=== PATIENT | female | born 1955 ===

== ENCOUNTER 2018-01-25 09:12 | Inpatient (IN) | payer OTHER ==
--- NOTE | 2018-01-25 09:14 | EDPHY ---
H & P Time Seen by Provider: 01/25/18 09:13 HPI/ROS: CHIEF COMPLAINT: Left hip pain post mechanical fall HISTORY OF PRESENT ILLNESS: 62-year-old female arrives via ambulance, not a trauma activation, complaining of acute left hip pain after she tripped on a crack outside of her house, fell onto her left hip this morning. There are no prolonged periods of mobility on the ground. Unable to bear weight. No head injury. No back pain or injury. No peripheral paresthesia, weakness, numbness. No other lower extremity injury beyond the left hip pain. Intact skin. No alcohol or drug use Last oral intake 7:30 a.m. consisting of dariana PRIMARY CARE PROVIDER:Kanchan REVIEW OF SYSTEMS: 10 systems reviewed and negative with the exception of the elements mentioned in the history of present illness PAST MEDICAL/SURGICAL HISTORY: no anticoagulant use, no relevant medical/ surgical history SOCIAL HISTORY: denies alcohol use at time of incident PHYSICAL EXAM 1) GENERAL: Well-developed, well-nourished, alert and oriented. Appears uncomfortable when she is moved from the ambulance pram to the bed . Answering questions appropriately. 2) HEAD: Normocephalic, atraumatic 3) HEENT: Pupils equal, round, reactive to light bilaterally. Negative Horners. Nasopharynx, oropharynx, clear. No deformity or angulation of nose. No septal hematoma. No rhinorrhea. No oral trauma. Ears bilaterally with normal tympanic membranes. No hemotympanum. No fluid or blood in the external auditory canal. No raccoon eyes. No Millard sign. Teeth are normally aligned with no gross malocclusion, TMJ bilaterally nontender, facial bones nontender including the zygomatic arch, maxilla mandible. 4) NECK: No cervical collar is on. Posterior cervical spine is nontender, no stepoff, no effusion. Full range of motion which does not elicit any midline cervical spine pain, no posterior midline tenderness, no step-off. 5) LUNGS: Clear to auscultation bilaterally, no wheezes, no rhonchi, no retractions. No obvious signs of trauma. No chest wall pain. No flaring, no grunting. Moving symmetrically. No crepitus. 6) HEART: Regular rate and rhythm, 7) ABDOMEN: No guarding, no rebound, no focal tenderness, no peritoneal signs, no signs of trauma, no ecchymosis 8) MUSCULOSKELETAL: Left lower extremity: Unable to assess like length discrepancy is patient is keeping like flexed and unwilling or unable to extend secondary to pain at the greater trochanteric region. No visible trauma such as ecchymosis or abrasion. Intact skin. Soft compartments throughout. DP PT pulses present and brisk. Brisk capillary refill distally. Otherwise, Moving all extremities, no focal areas of tenderness, no obvious trauma. 9) BACK: No midline vertebral tenderness, no fluctuance, no step-off, no obvious trauma, no visual or palpable abnormality. 10) SKIN: No laceration. No abrasion DIFFERENTIAL DIAGNOSIS: In no particular order including but not limited to fracture, sprain, strain, dislocation, compartment syndrome Constitutional: Initial Vital Signs Temperature (C) 36.7 C 01/25/18 09:12 Heart Rate 88 01/25/18 09:12 Respiratory Rate 16 01/25/18 09:12 Blood Pressure 122/94 H 01/25/18 09:12 O2 Sat (%) 94 01/25/18 09:12 O2 Delivery Mode Room Air Allergies/Adverse Reactions: No Known Allergies Allergy (Verified 01/25/18 11:05) Home Medications: Medication Instructions Recorded Estradiol [Estradiol 1 MG (*)] 1 mg PO HS 01/25/18 Herbals/Supplements -Info Only 1 ea PO DAILY 01/25/18 Multivitamins [Multivitamin (*)] 1 each PO DAILY 01/25/18 Progesterone, Micronized 100 mg PO HS 01/25/18 [Progesterone] Medical Decision Making - Diagnostics Imaging Results: Imaging Impressions Chest X-Ray 01/25/18 09:26 Impression: No acute pulmonary disease. Hip X-Ray 01/25/18 09:26 Impression: 1. Fracture left femoral neck extending to the lesser trochanter. Mild displacement. Images reviewed by myself ED Course/Re-evaluation: 9:25 a.m.: I have examined the patient. Suspect more than likely left hip fracture. She will remain NPO, last oral intake at 7:30 a.m. Today. Will obtain x-rays. I saw this patient independently based on established practice protocols. Care of patient under supervision of secondary supervising physician Dr Erika Wheatley with whom I discussed case. 10:06 a.m.: I reviewed with the patient her her x-ray showing left femoral neck fracture. She consented to having knee electronically transmitted non identifying x-rays to orthopedic surgeon television news reporter Dr. Lopez Strong 10:45 a.m.: Consultation with hospitalist, Shikha, admit to Dr. Hubert Gracia. Awaiting callback from Dr. Strong 10:53 a.m.: Consultation with Dr. Lopez Strong will consult Orthopedics, possible surgery tomorrow 11:15 a.m.: Phone call from Dr. Strong requests CT of the left hip - Data Points Laboratory Results: Laboratory Results 01/25/18 10:00 01/25/18 09:30 01/25/18 01/25/18 01/25/18 10:00 10:00 09:30 WBC 9.15 10^3/uL 10^3/uL (3.80-9.50) RBC 4.76 10^6/uL 10^6/uL (4.18-5.33) Hgb 14.2 g/dL g/dL (12.6-16.3) Hct 42.3 % % (38.0-47.0) MCV 88.9 fL fL (81.5-99.8) MCH 29.8 pg pg (27.9-34.1) MCHC 33.6 g/dL g/dL (32.4-36.7) RDW 13.5 % % (11.5-15.2) Plt Count 280 10^3/uL 10^3/uL (150-400) MPV 9.4 fL fL (8.7-11.7) Neut % (Auto) 74.0 % % (39.3-74.2) Lymph % (Auto) 18.0 % % (15.0-45.0) Webster % (Auto) 5.5 % % (4.5-13.0) Eos % (Auto) 1.5 % % (0.6-7.6) Baso % (Auto) 0.5 % % (0.3-1.7) Nucleat RBC Rel Count 0.0 % % (0.0-0.2) Absolute Neuts (auto) 6.76 10^3/uL H 10^3/uL (1.70-6.50) Absolute Lymphs (auto) 1.65 10^3/uL 10^3/uL (1.00-3.00) Absolute Monos (auto) 0.50 10^3/uL 10^3/uL (0.30-0.80) Absolute Eos (auto) 0.14 10^3/uL 10^3/uL (0.03-0.40) Absolute Basos (auto) 0.05 10^3/uL 10^3/uL (0.02-0.10) Absolute Nucleated RBC 0.00 10^3/uL 10^3/uL (0-0.01) Immature Gran % 0.5 % % (0.0-1.1) Immature Gran # 0.05 10^3/uL 10^3/uL (0.00-0.10) PT 12.4 SEC SEC (12.0-15.0) INR 0.90 (0.83-1.16) APTT 23.2 SEC SEC (23.0-38.0) Sodium 139 mEq/L mEq/L (135-145) Potassium 3.9 mEq/L mEq/L (3.3-5.0) Chloride 105 mEq/L mEq/L (97-110) Carbon Dioxide 24 mEq/l mEq/l (22-31) Anion Gap 10 mEq/L mEq/L (6-14) BUN 17 mg/dL mg/dL (7-23) Creatinine 0.8 mg/dL mg/dL (0.6-1.0) Estimated GFR > 60 Glucose 107 mg/dL H mg/dL (70-100) Calcium 9.5 mg/dL mg/dL (8.5-10.4) 01/25/18 01/25/18 09:30 09:30 WBC REJ RBC REJ Hgb REJ Hct REJ MCV REJ MCH REJ MCHC REJ RDW REJ Plt Count REJ MPV REJ Neut % (Auto) REJ Lymph % (Auto) REJ Webster % (Auto) REJ Eos % (Auto) REJ Baso % (Auto) REJ Nucleat RBC Rel Count REJ Absolute Neuts (auto) REJ Absolute Lymphs (auto) REJ Absolute Monos (auto) REJ Absolute Eos (auto) REJ Absolute Basos (auto) REJ Absolute Nucleated RBC REJ Immature Gran % REJ Immature Gran # REJ PT REJ INR REJ APTT REJ Sodium Potassium Chloride Carbon Dioxide Anion Gap BUN Creatinine Estimated GFR Glucose Calcium Medications Given: Discontinued Medications Hydromorphone HCl (Dilaudid) 1 mg IVP EDNOW ONE Stop: 01/25/18 09:28 Last Admin: 01/25/18 09:35 Dose: 1 mg Ondansetron HCl (Zofran) 4 mg IVP EDNOW ONE Stop: 01/25/18 09:28 Last Admin: 01/25/18 09:36 Dose: 4 mg Departure - Departure Disposition: [facility] Inpatient Acute Clinical Impression: Left displaced femoral neck fracture Condition: Good
[2018-01-25] MEDS ORDERED: HYDROmorphONE/DILAUDID 1 MG/ML INJ IVP ONE ×2 (09:27→11:18)
[2018-01-25] MEDS ORDERED: ONDANSETRON 4 MG/2 ML VIAL IVP ONE (09:27)
[2018-01-25] MEDS ORDERED: HYDROmorphONE/DILAUDID 2 MG/ML INJ ONE (09:31)
[2018-01-25 10:33] LABS: INR 0.9 (0.83-1.16); PROTIME(PATIENT) 12.4 SEC (12.0-15.0)
--- NOTE | 2018-01-25 11:18 | CPEKG ---
Test Reason : OPEN Blood Pressure : / mmHG Vent. Rate : 079 BPM Atrial Rate : 080 BPM P-R Int : 153 ms QRS Dur : 096 ms QT Int : 381 ms P-R-T Axes : 079 070 062 degrees QTc Int : 437 ms Sinus rhythm Borderline T abnormalities, anterior leads Confirmed by Erika Wheatley ([id number]) on 01/25/2018 11:18:23 AM Referred By: Confirmed By:Erika Wheatley
[2018-01-25] MEDS ORDERED: ACETAMINOPHEN 325 MG TAB PO ONE (12:34)
[2018-01-25] MEDS ORDERED: FAMOTIDINE 20 MG TAB PO ONE (12:34)
[2018-01-25] MEDS ORDERED: POVIDONE-IODINE 20 ML in SODIUM CL IRRIG SOLUTION 500 ML IRR ONE (12:34)
[2018-01-25] MEDS ORDERED: TRANEXAMIC ACID 1,000 MG in NS 100 ML IV ONE (12:34)
[2018-01-25] MEDS ORDERED: DEXAMETHASONE 4 MG/ML VIAL IVP ONE (12:34)
[2018-01-25] MEDS ORDERED: ceFAZolin 2 GM/DEXTROSE 100 ML IV ONE (12:34)
[2018-01-25] MEDS ORDERED: ROPIVACAINE 0.2% 80 MG, EPINEPHrine 0.2 MG, KETOROLAC TROMETHAMINE 30 MG in SYRINGE 0 ML IU ONE (12:34)
[2018-01-25] MEDS ORDERED: ACETAMINOPHEN 325 MG TAB PO PRN (13:02)
[2018-01-25] MEDS ORDERED: ONDANSETRON DISINTEGRATING 4 MG TAB PO PRN (13:02)
[2018-01-25] MEDS ORDERED: ONDANSETRON 4 MG/2 ML VIAL IVP PRN (13:02)
[2018-01-25] MEDS ORDERED: HYDROmorphONE/DILAUDID 2 MG/ML INJ IVP PRN (13:02)
[2018-01-25] MEDS ORDERED: POLYETHYLENE GLYCOL 3350 17 GM PKT PO PRN (13:07)
[2018-01-25] MEDS ORDERED: MAGNESIUM HYDROXIDE 30 ML UDCUP PO PRN (13:07)
[2018-01-25] MEDS ORDERED: LACTULOSE 20 GM/30 ML UDCUP PO PRN (13:07)
[2018-01-25] MEDS ORDERED: BISACODYL 10 MG SUPP PR PRN (13:07)
--- NOTE | 2018-01-25 13:51 | GHP ---
DATE OF ADMISSION: 01/25/2018 CHIEF COMPLAINT: Left hip pain. HISTORY OF PRESENT ILLNESS: The patient is a delightful 62-year-old female without any significant past medical history. Earlier today, she was walking by her house between the cement and mulch area. There was a hole in which her right foot landed and she fell on her left hip. She describes losing her balance and falling completely on her left side. She did not sustain any other injuries. She did not have any chest pain, shortness of breath, or any type of presyncopal symptoms, it was simply loss of balance. During my interview, she is having no pain if she does not move. She is very concerned about moving. PAST MEDICAL HISTORY: Elevated cholesterol. PAST SURGICAL HISTORY: None. SOCIAL HISTORY: She does not smoke. She does not drink alcohol. She has been x41 years. She has 2 sons. She is retired. 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 She grew up in [place]. She is overall very active woman. She swims twice a week. She also volunteers at the [employer] and walks on a regular basis with her dogs. FAMILY HISTORY: Her mother from complications of ovarian cancer at age 82. Father from complications of cardiac issues at age 93. ALLERGIES: No known allergies. MEDICATIONS: Multivitamin 1 tablet daily, herbal supplements 1 tablet daily, progesterone 100 mg p.o. q.h.s. , estradiol 1 mg p.o. q.h.s. REVIEW OF SYSTEMS: A 10-point review of system was performed, was negative other than pertinent positives in HPI and past medical history. PHYSICAL EXAM: GENERAL: The patient is a 62-year-old female who appears to be in excellent health. VITAL SIGNS: Blood pressure is 131/72, heart rate is 77, respiratory rate is 16, O2 sats on room air 95%, temperature is 36.7 Celsius. EYES: pupils are equal reactive. EOMs are intact. She is wearing glasses. ENT: Normal ears. Hearing intact. Normal lips, teeth. Oral airways moist. NECK: Trachea is midline. No masses. CARDIOVASCULAR: Regular rate and rhythm. No murmurs, rubs, or gallops noted. CHEST/LUNGS: Normal respiratory effort. Clear without wheezing, rales, or rhonchi. ABDOMEN: Soft, nontender. SKIN: No rashes. Warm, dry, and intact. MUSCULOSKELETAL: Her left lower extremity is shortened and externally rotated. PSYCHIATRIC: She is alert and oriented. Normal mood, affect. Normal judgment, insight, and normal memory. LABORATORY/IMAGING DATA: Reviewed. A CBC was performed, which showed a white blood cell count of 9.15, hemoglobin 14.2, hematocrit 42.3, platelet count 280. Coags: Pro time is 12.4, INR of 0.9, PTT 23.2. Chemistry: Sodium is 139, potassium 3.9, chloride of 105, BUN of 17, creatinine 0.8, glucose of 107, calcium 9.5. 1. Chest x-ray was performed, which showed no acute pulmonary disease. Cardiac silhouette is normal in size. 2. Hip x-ray shows fracture of the left femoral neck extending to the lesser trochanter with mild displacement. 3. A CT of the pelvis and left hip shows left femoral neck fracture with mild displacement and without extension to the lesser and greater trochanters. I reviewed the patient's care with David Werner, physician assistant community manager, in the emergency room. I also reviewed her care with Dr. Lopez Strong who plans on taking her to the OR tomorrow. ASSESSMENT/PLAN: 1. Left femoral neck fracture with mild displacement. The plan is for her to go to operating room in the morning. She is extremely functional at baseline. Will get a baseline EKG. 2. Pain due to the hip fracture. Will order p.r.n. pain medications and also place her on a bowel protocol. 3. Mild hyperglycemia. This is likely stress induced. 4. Deep venous thrombosis prophylaxis. This should be initiated after surgery , especially in the setting of hormone replacement therapy. 5. Length of stay. She will likely require greater than a 2-midnight stay for surgery and re-evaluation by Physical Therapy and Occupational Therapy. CODE STATUS: Full. /[id number]/MODL MTDD
[2018-01-25] MEDS: ACETAMINOPHEN 500 MG TAB PO SCH ×2 (14:07→22:08)
--- NOTE | 2018-01-25 15:11 | ASMTCMCOM ---
CM Note CM Note Notes: Pt admitted to hospital after a fall. She is normally in good health and active, she lives at home with her . She will go for surgery tomorrow am. PT/OT pending. DC Plan: TBD Date Signed: 01/25/2018 03:10 PM Electronically Signed By:Mandi Eastman RN
--- NOTE | 2018-01-25 15:13 | PDMN ---
Medical Necessity Medical necessity: Pt meets inpt criteria per MD order and [facility] [id number], Hip Fracture, Open Repair RRG, 3 days, [facility] inpt only list. 62 y/o admitted with L femoral neck fracture sustained in fall, plan to go to OR tomorrow AM for surg intervention, pain management. Anticipate>2MN for management of hip fracture.
[2018-01-25] MEDS: oxyCODONE IR 5 MG TAB PO PRN ×3 (15:22→22:09)
[2018-01-25] MEDS: ZOLPIDEM TARTRATE 5 MG TAB PO PRN (22:09)
[2018-01-25] MEDS: SENNOSIDES/DOCUSATE SODIUM TAB PO SCH (22:10)
[2018-01-25] MEDS: NS 1,000 ML IV SCH (22:10)
[2018-01-26] MEDS: ACETAMINOPHEN 500 MG TAB PO SCH ×3 (05:59→21:56)
[2018-01-26] MEDS: oxyCODONE IR 5 MG TAB PO PRN ×2 (06:00→10:19)
[2018-01-26] MEDS: NS 1,000 ML IV SCH (07:03)
[2018-01-26] MEDS: SENNOSIDES/DOCUSATE SODIUM TAB PO SCH ×2 (07:37→21:56)
[2018-01-26] MEDS ORDERED: LR 1,000 ML IV ONE (11:53)
[2018-01-26] MEDS ORDERED: TRANEXAMIC ACID 1,000 MG in NS 100 ML IV ONE (12:00)
[2018-01-26] MEDS ORDERED: DEXAMETHASONE 4 MG/ML VIAL IVP ONE (12:00)
[2018-01-26] MEDS ORDERED: FAMOTIDINE 20 MG TAB PO ONE (12:00)
[2018-01-26] MEDS ORDERED: ceFAZolin 2 GM/DEXTROSE 100 ML IV ONE (12:00)
[2018-01-26] MEDS ORDERED: POVIDONE-IODINE 20 ML in SODIUM CL IRRIG SOLUTION 500 ML IRR ONE (12:00)
[2018-01-26] MEDS ORDERED: ROPIVACAINE 0.2% 80 MG, EPINEPHrine 0.2 MG, KETOROLAC TROMETHAMINE 30 MG in SYRINGE 0 ML IU ONE (12:00)
--- NOTE | 2018-01-26 12:06 | GCON ---
ORTHOPEDIC CONSULTATION. DATE OF CONSULTATION: 01/25/2018 TIME: 12:30 p.m. CHIEF COMPLAINT: Left hip pain. HISTORY OF PRESENT ILLNESS: A 62-year-old female, otherwise healthy, who tripped and fell with her l anding onto her left side due to a hole in the ground. She denies head trauma or loss of consciousne ss. She denies chest pain, shortness of breath, dizziness or loss of balance. She is comfortable du ring her interview and able to recount the entire event. She denies numbness or tingling. PAST MEDICAL HISTORY: Hyperlipidemia. PAST SURGICAL HISTORY: None. SOCIAL HISTORY: Denies nicotine, alcohol, or illicit drug use. She is originally from [facility], but h as been in [place] for multiple decades. She is overall very active. She swims multiple times per w [employer]. ALLERGIES: None. MEDICATIONS: Multivitamin and herbal supplements daily, progesterone 100 mg every night, estradiol 1 mg every night. FAMILY HISTORY: Noncontributory. REVIEW OF SYSTEMS: 10-point review of systems was performed and negative, otherwise as per HPI. PHYSICAL EXAM: GENERAL: The patient is awake, alert, and oriented x3, in no acute distress. She is using nonlabored breathing. VITAL SIGNS: Blood pressure is 131/72, heart rate 77, respiration rate 16, O2 saturation 95% on room air. Temperature 36.7. HEENT: Pupils equal, and reactive. Normocep halic, atraumatic. EXTREMITIES: Left lower extremity is shortened and externally rotated. She has tenderness to palpation around the lateral and anterior hip. There is no significant ecchymosis and minimal swelling. LABORATORY DATA: Unremarkable and as noted per the chart. IMAGING: AP pelvis and x-rays of the left hip demonstrate a displaced midcervical femoral neck fract ure. ASSESSMENT AND PLAN: A 62-year-old female with a displaced left femoral neck fracture. We discussed treatment options including nonoperative, hip preserving fixation procedures, and hip replacement. All the risks, benefits, pros and cons of each were described. The patient has elected to proceed wi th a left anterior approach total hip arthroplasty. All the risks and benefits were discussed includ ing the inherent risks of anesthesia and surgery including bleeding, infection, damage to surrounding structures, specifically the lateral femoral cutaneous nerves, sciatic and femoral nerves, specifica lly with hip replacement, the risks of fracture, dislocation, leg length discrepancy, heterotopic os sification, implant longevity, metal allergies and risk of DVT. The patient voiced understanding to all these risks and benefits and wishes to proceed. She will be placed on Lovenox postoperatively d ue to her use of hormone replacement therapy. This will be held for the next 4 weeks while she is in the perioperative period. She understands and agrees with this treatment plan. All questions were answered. /[id number]/MODL
[2018-01-26] MEDS ORDERED: BUPIVACAINE/EPI 0.5% 30 ML SDV ONE (12:14)
--- NOTE | 2018-01-26 12:19 | CPEKG ---
Test Reason : OPEN Blood Pressure : / mmHG Vent. Rate : 080 BPM Atrial Rate : 080 BPM P-R Int : 151 ms QRS Dur : 084 ms QT Int : 502 ms P-R-T Axes : 075 064 000 degrees QTc Int : 580 ms Sinus rhythm Prolonged QT interval Prolongation of the QT is new in comparison to the prior Confirmed by Bo Davidson [id number]) on 01/26/2018 12:19:02 PM Referred By: Confirmed By:Bo Davidson
--- NOTE | 2018-01-26 12:35 | HOSPPROG ---
Hospitalist Progress Note Assessment/Plan: 1. L Femoral Neck Fracture - Ortho consulted, plan for OR today - Pain medications prn - PT/OT ordered 2. Pain 2/2 to Hip Fracture - Pain medications ordered as PRN - Bowel protocol ordered 3. Mild Hyperglycemia - Likely stress induced - Continue to monitor Ppx: - Start DVT ppx s/p procedure Dispo: Pending clinical course, PT/OT recommendations Subjective: Patient reports pain in LLE Objective: Vital Signs Temp Pulse Resp BP Pulse Ox 37.0 C 83 18 122/66 H 92 01/26/18 11:37 01/26/18 11:37 01/26/18 11:37 01/26/18 11:37 01/26/18 11:37 01/25/18 01/26/18 01/27/18 05:59 05:59 05:59 Intake Total 550 960 Output Total 1100 850 Balance -550 110 PT 12.4 SEC (12.0-15.0) 01/25/18 10:00 INR 0.90 (0.83-1.16) 01/25/18 10:00 - Physical Exam Constitutional: no apparent distress Eyes: PERRL Ears, Nose, Mouth, Throat: moist mucous membranes Cardiovascular: regular rate and rhythym Respiratory: clear to auscultation Gastrointestinal: soft, non-tender abdomen Genitourinary: no bladder tenderness Skin: warm Musculoskeletal: pain with ROM Neurologic: AAOx3 Psychiatric: interacting appropriately ICD10 Worksheet Patient Problems: Problems Problem Status Onset Left displaced femoral neck fracture Acute
--- NOTE | 2018-01-26 13:22 | PDANEPAE ---
ANE Past Medical History - Pulmonary History Hx Oxygen in Use at Home: No Hx Sleep Apnea: Yes Sleep Apnea Screening Result - Last Documented: Positive - Endocrine History Hx Diabetes: No ANE Review of Systems Review of Systems: ANE Patient History - Allergies Allergies/Adverse Reactions: No Known Allergies Allergy (Verified 01/25/18 11:05) - Home Medications Home medications: home medication list seen and reviewed Home Medications: Estradiol [Estradiol 1 MG (*)] 1 mg PO HS 01/25/18 [Last Taken 01/24/18] Herbals/Supplements -Info Only 1 ea PO DAILY 01/25/18 [Last Taken Unknown] Multivitamins [Multivitamin (*)] 1 each PO DAILY 01/25/18 [Last Taken Unknown] Progesterone, Micronized [Progesterone] 100 mg PO HS 01/25/18 [Last Taken ] - NPO status NPO Since - Liquids (Date): 01/26/18 NPO Since - Liquids (Time): 00:00 NPO Since - Solids (Date): 01/26/18 NPO Since - Solids (Time): 00:00 - Smoking Hx Smoking Status: Never smoked ANE Labs/Vital Signs - Labs Result Diagrams: 01/25/18 10:00 01/25/18 09:30 - Vital Signs Blood Pressure: 122/66 Heart Rate: 83 Respiratory Rate: 18 O2 Sat (%): 92 Height: 162.56 cm Weight: 68.039 kg
[2018-01-26] MEDS ORDERED: MIDAZOLAM 2 MG/2 ML VIAL IVP ONE (13:26)
[2018-01-26] MEDS ORDERED: MIDAZOLAM 2 MG/2 ML VIAL ONE (13:30)
[2018-01-26] MEDS ORDERED: PROPOFOL 200 MG/20 ML VIAL ONE (13:42)
[2018-01-26] MEDS ORDERED: fentaNYL 100 MCG/2 ML INJ ONE ×2 (13:42→16:21)
[2018-01-26] MEDS ORDERED: ROCURONIUM 100 MG/10 ML VIAL ONE (14:04)
[2018-01-26] MEDS ORDERED: LIDOCAINE 2% 100 MG/5 ML SYR ONE (14:04)
[2018-01-26] MEDS ORDERED: ONDANSETRON 4 MG/2 ML VIAL IVP PRN (15:32)
[2018-01-26] MEDS ORDERED: NALOXONE HCL 0.4 MG/ML INJ IVP PRN (15:32)
[2018-01-26] MEDS ORDERED: HYDROmorphONE/DILAUDID 2 MG/ML INJ IVP PRN (15:32)
--- NOTE | 2018-01-26 16:14 | POSTANESTH ---
Post Anesthetic Evaluation Cardiovascular Status: Similar to Pre-Op Cond Respiratory Status: Similar to Pre-op Cond. Level of Consciousness/Mental Status: Alert and Oriented Pain Control: Adequate, Prn Tx Ordered Nausea/Vomiting Control: Adequate, Prn Tx Ordered Complications Possibly Related to Anesthesia: None Noted
--- NOTE | 2018-01-26 16:18 | POSTOPPROG ---
Post Op Note Date of Operation: 01/26/18 Surgeon: Lopez Strong Military Cook: MAYRA Guevara Anesthesiologist: MD Zoe Anesthesia: GET(General Endotracheal) Pre-op Diagnosis: left femoral neck fracture Post-op Diagnosis: same Procedure: Left anterior GRACE Inf/Abcess present in the surg proc area at time of surgery?: No EBL: 100-500 (300) Drains: Hemovac
[2018-01-26] MEDS ORDERED: METOCLOPRAMIDE 10 MG/2 ML VIAL IVP PRN (16:19)
[2018-01-26] MEDS ORDERED: DIPHENOXYLATE/ATROPINE LOMOTIL 1 TAB PO PRN (16:19)
[2018-01-26] MEDS ORDERED: CYCLOBENZAPRINE 10 MG TAB PO PRN (16:19)
[2018-01-26] MEDS ORDERED: TEMAZEPAM 15 MG CAP PO PRN (16:19)
[2018-01-26] MEDS ORDERED: diphenhydrAMINE 25 MG CAP PO PRN (16:19)
[2018-01-26] MEDS ORDERED: PROMETHAZINE HCL 25 MG/ML INJ IVP PRN (16:19)
[2018-01-26] MEDS: fentaNYL 100 MCG/2 ML INJ IVP PRN ×2 (16:23→16:42)
[2018-01-26] MEDS ORDERED: LR 1,000 ML IV SCH (16:30)
--- NOTE | 2018-01-26 19:24 | GOP ---
DATE OF OPERATION: 01/25/2018 SURGEON: Lopez Strong MD INDUSTRIAL ENGINEERING MANAGER: HARRIET Rogel Nursing Coordinator was required for the procedure due to the complexity of the case and the patient's conditio n for positioning, prepping, draping and retraction and closure. ANESTHESIA: General. PREOPERATIVE DIAGNOSIS: Left femoral neck fracture. POSTOPERATIVE DIAGNOSIS: Displaced, externally rotated and shortened femoral neck fracture with infe rior comminution. PROCEDURE PERFORMED: Left anterior approach total hip arthroplasty with fluoroscopic supervision, gr eater than 1 hour. FINDINGS: SPECIMENS: None. ESTIMATED BLOOD LOSS: 300 cc. INDICATIONS: Patient had a mechanical fall into a hole and fell onto her left side sustaining the fe moral neck fracture. The patient elected to proceed with anterior approach hip replacement after ext ensive discussion of the possible approaches, as well as the risks, benefits, pros, cons, expected re covery and prognosis. The patient verbalized understanding of the risks and benefits of the procedur e and signed informed consent prior to the procedure. DESCRIPTION OF PROCEDURE: The patient was seen in the holding area and the operative consent and ext remity were signed. The patient was taken to the operating room after smooth induction of spinal ane sthesia and sedation. The patient was placed in the supine position on the stress fracture table. Th e hip was prepped and draped in the usual sterile fashion. The operative site was confirmed by signa ture. Time-out performed. Allergies reviewed, and antibiotics and TXA were administered. The desired incision for the anterior approach of the hip was infiltrated with 0.25% Marcaine with ep inephrine. Incision was made with a 10 blade, carried through subcutaneous fat to identify the TFL f ascia. This was incised in line with the incision, and the TFL was retracted laterally and the later al femoral circumflex vessels were coagulated with the Aquamantys, and the deep TFL fascia was incise d. Vastus lateralis was clearly exposed, pericapsular fat was excised and a T-shaped capsulotomy was performed and the capsule was preserved for later closure. Immediate identification of the comminut ed femoral neck fracture was observed. The femoral neck fracture was freshened with an oscillating s aw. The excess femoral neck was removed and the femoral head was excised with a corkscrew. The acet abulum was exposed in standard fashion, labrum and pulvinar were excised sharply. Reaming was perfor med using fluoroscopic guidance to the desired size. The cup was impacted into place, again with flu oroscopic guidance. Good fixation was achieved. The cup was irrigated, dried, and the liner was imp acted into place achieving good locking within the cup. The femur was then exposed in standard fashi on. The femur was then broached to the desired size, trial neck and head were attached to the hip an d the hip was relocated. Position of all components was confirmed, fluoroscopically. The foot was f cathleen from the table and stability was confirmed at 45 degrees in maximal flexion with 30 degrees of i nternal rotation. The foot was secured back to the table, externally rotated at 90 degrees, extended chcf to the floor and stability again was confirmed. The hip was then dislocated, and the femora l trial components were removed and the stem was impacted into place. The trunnion was cleaned and d ried, and the head was impacted down into the trunnion. The wound was copiously irrigated, including the cup with pulse lavage and the hip was once again relocated. Component placement was confirmed w ith fluoroscopy. The wound was copiously irrigated with sterile solution, diluted Betadine and solut ion was then irrigated in the wound, allowed to soak for 3 minutes before being irrigated out. A regina nt cocktail was injected into the soft tissue, capsule was repaired with #1 Vicryl. The indirect hea d of the rectus femoris was also repaired with #1 Vicryl. Drain was placed exiting distally and late rally from the TFL. The wound was then closed in layers with 0 Quill in the TFL fascia and subcutane ous fat, 3-0 Versalok in dermis. The wound was then dressed with sterile dressing. Patient was safe ly awakened, extubated, and taken to the recovery room in stable condition. All critical portions of procedure were performed by myself, Dr. Strong. This operative note was creat ed by myself, and I was immediately available for emergency cross-coverage at all times. DRAINS: Hemovac x1. COMPLICATIONS: None. IMPLANTS: Trident II acetabular shell, size 48 with a 0 degree polyethylene liner, Accolade II, size 4 stem, 127 degree offset with a 36 mm +0 head. /[id number]/MODL
[2018-01-26] MEDS: ZOLPIDEM TARTRATE 5 MG TAB PO PRN (21:56)
[2018-01-26] MEDS: ceFAZolin 2 GM/DEXTROSE 100 ML IV SCH (21:57)
[2018-01-26] MEDS: FAMOTIDINE 20 MG TAB PO SCH (21:57)
[2018-01-27] MEDS: ACETAMINOPHEN 500 MG TAB PO SCH (05:05)
[2018-01-27] MEDS: ceFAZolin 2 GM/DEXTROSE 100 ML IV SCH (05:05)
[2018-01-27 05:10] LABS: PLATELET COUNT 247 10^3/uL (150-400)
--- NOTE | 2018-01-27 06:29 | SOAPPROG ---
SOAP Progress Note Assessment/Plan: Assessment: Postop day 1 status post left anterior approach total hip arthroplasty for femoral neck fracture Plan: Weight bear as tolerated with assistance, PT/OT DVT prophylaxis: SCDs [place] Lovenox x2 weeks 40 mg daily, aspirin 81 mg twice daily for 2 weeks thereafter Hold hormone replacement for 1 month Incentive spirometry 10 times per hour Hematuria resolved, Ron has been removed Disposition: home today 01/27/18 06:26 01/27/18 06:27 01/27/18 06:27 Subjective: No acute events. Pain well controlled. Denies fevers chills nausea vomiting chest pain shortness of breath numbness or tingling. Hematuria has resolved Objective: Vital Signs Temp Pulse Resp BP Pulse Ox 36.7 C 67 16 109/60 97 01/27/18 03:30 01/27/18 03:30 01/27/18 03:30 01/27/18 03:30 01/27/18 03:30 Laboratory Results 01/27/18 04:15 01/27/18 04:15 01/26/18 01/27/18 01/28/18 05:59 05:59 05:59 Intake Total 550 4560 Output Total 1100 2060 Balance -550 2500 PT 12.4 SEC (12.0-15.0) 01/25/18 10:00 INR 0.90 (0.83-1.16) 01/25/18 10:00 Awake alert and oriented x3 No acute distress Easy nonlabored breathing Hip: Dressing clean dry intact no erythema drainage or signs infection Minimal swelling and ecchymosis Thigh and calf compartments soft compressible, calf nontender Motor intact to EHL FHL tibialis anterior gastrocsoleus Sensation intact to light touch from L3-S1 Palpable DP PT pulses - Time Spent With Patient Time Spent With Patient: 10 - Pending Discharge Pending Discharge Within 24 Hours: Yes Pending Discharge Date: 01/27/18 Pending Discharge Time: 11:00 ICD10 Worksheet Patient Problems: Problems Problem Status Onset Left displaced femoral neck fracture Acute
[2018-01-27 08:18] VITALS: BP 104/48
[2018-01-27] MEDS: oxyCODONE IR 5 MG TAB PO PRN (08:53)
[2018-01-27] MEDS ORDERED: ENOXAPARIN 40 MG/0.4 ML SYR SC SCH ×2 (09:00)
--- NOTE | 2018-01-27 09:09 | HOSPPROG ---
Hospitalist Progress Note Assessment/Plan: L Femoral Neck Fracture -s/p total hip arthroplasty -WBAT *Hematuria -resolved -repeat ua in one to two weeks *pain due to hip fx -minimal *hyperglycemia -minimal *leukocytosis -acute reaction to surgery *Plan: dc home, reviewed w her and her plan of care Subjective: Xiomara says pain is minimal. Objective: Vital Signs Temp Pulse Resp BP Pulse Ox 36.8 C 90 14 104/48 L 90 L 01/27/18 08:00 01/27/18 08:00 01/27/18 08:00 01/27/18 08:00 01/27/18 08:00 Laboratory Results 01/27/18 04:15 01/27/18 04:15 01/26/18 01/27/18 01/28/18 05:59 05:59 05:59 Intake Total 550 4560 Output Total 1100 2060 Balance -550 2500 PT 12.4 SEC (12.0-15.0) 01/25/18 10:00 INR 0.90 (0.83-1.16) 01/25/18 10:00 - Physical Exam Constitutional: no apparent distress, appears nourished, not in pain Eyes: PERRL Ears, Nose, Mouth, Throat: hearing normal Cardiovascular: regular rate and rhythym Respiratory: no respiratory distress Skin: warm Musculoskeletal: generalized weakness Neurologic: AAOx3 Psychiatric: interacting appropriately ICD10 Worksheet Patient Problems: Problems Problem Status Onset Left displaced femoral neck fracture Acute
--- NOTE | 2018-01-27 10:12 | GDS ---
DISCHARGE DIAGNOSES: 1. Left femoral neck fracture, status post total hip arthroplasty. 2. Hematuria. 3. Pain due to the hip fracture. 4. Hyperglycemia. 5. Leukocytosis. HISTORY OF PRESENT ILLNESS: Briefly, the patient is a 62-year-old woman without any significant past medical history. She was walking by her house and lost her balance and landed on her hip. She sustained a hip fracture. She subsequently had surgery with Dr. Strong. She has done very well with surgery. She will be discharged home. She will be weightbearing as tolerated. HOSPITAL COURSE: 1. Left femoral neck fracture. She is status post total hip arthroplasty. She can be weightbearing as tolerated. 2. Hematuria. I suspect this is from Ron being placed in. I recommended she get a repeat UA in 1-2 weeks. 3. Pain due to hip fracture, minimal. 4. Hyperglycemia, minimal. 5. Leukocytosis. This is likely secondary to an acute reaction due to surgery. DISCHARGE CONDITION: Stable. Blood pressure is 104/48, heart rate of 90, respiratory rate 14. O2 sats on 2 L are 90%. Temperature is 36.8 Celsius. DISCHARGE MEDICATIONS: Please see the EMR. DISCHARGE INSTRUCTIONS: 1. Weightbearing as tolerated. 2. Follow up with Dr. Strong in a few weeks. 3. To take Tylenol scheduled every 8 hours. If pain is worsening, try the Oxy IR. 4. Repeat urinalysis. 5. If she develops fever, chills, purulent drainage from her incision site, to return to the ER or call Dr. Strong. Copy requested to: Dr. Strong /[id number]/MODL MTDD
[2018-01-27] MEDS: SENNOSIDES/DOCUSATE SODIUM TAB PO SCH (10:34)
[2018-01-27] MEDS: FAMOTIDINE 20 MG TAB PO SCH (10:35)
--- NOTE | 2018-01-27 11:54 | ASMTLACE ---
JESSICAE Length of stay for Answers: 2 days current admission Acuity / Level of Answers: Yes Care: Did the patient have an inpatient admission? # of Emergency department Answers: 1-2 visits in the last 6 months Score: 6 Date Signed: 01/27/2018 11:53 AM Electronically Signed By:LAVERN Rae
--- NOTE | 2018-01-27 11:55 | ASMTCMCOM ---
CM Note CM Note Notes: Pt medically stable for d/c with family support, no CM d/c needs identified. PT rec home/outpatient. Date Signed: 01/27/2018 11:54 AM Electronically Signed By:LAVERN Rae
== END 2018-01-27 12:03 | disposition home or self-care (01) | DRG 470 ==
LOC: EDBD → EDUNIT# → OBSVTOIN 10:50 → F3N 12:25
PROVIDERS: ADMIT Internal Medicine; ATTEND Internal Medicine
PROC: 0SRB04Z Replacement of Left Hip Joint with Ceramic on Polyethylene Synthetic Substitute, Open Approach (ICD-10-PCS; principal; 2018-01-25)
DX: S72.002A Fracture of unspecified part of neck of left femur, initial encounter for closed fracture (principal); R31.9 Hematuria, unspecified; R73.9 Hyperglycemia, unspecified; W01.0XXA Fall on same level from slipping, tripping and stumbling without subsequent striking against object, initial encounter; Y92.018 Other place in single-family (private) house as the place of occurrence of the external cause
CPT/HCPCS: 96374; 97116-GP; 97161-GP; 97165-GO; J0171; J0690; J1100; J1170; J1650; J1885; J2001; J2250; J2405; J2704; J2795; J3010